=== PATIENT | female | born 1965 | race Caucasian/White ===

== ENCOUNTER 2021-09-06 14:47 | Emergency (ER) | payer BC, SELFPAY ==
[2021-09-06 15:01] VITALS: BP 124/84; PULSE 65; RESP 15; TEMP 36.7; O2SAT 98; BMI 25.8
--- NOTE | 2021-09-06 15:25 | ED_ITS ---
HPI - Syncope General: Chief Complaint: Syncope Stated Complaint: SYNCOPE Time Seen by Provider: 09/06/21 14:54 Source: patient and family History of Present Illness: HPI narrative: 56 year old female presents to the emergency room department chief complaint of syncopal episode while at [facility] patient was with family and friends in which she was not feeling good earlier this morning did not eat breakfast nor lunch in which she had a witnessed syncopal episode in front of family. Patient did strike her head she was unresponsive for about a couple minutes she has had up to now intermittent episodes of left arm tightness and numbness has been ongoing she recalls no pre- existing history of any cardiac disease does report she had a clean bill of health at her last physical by her primary care doctor in the last 2 months patient does not recall having prior history of any episodes of cardiac issues reports no pulmonary issues reports no recent medication changes or any other associated symptoms. MD complaint: loss of consciousness Onset (ago): minute(s) Associated symptoms: Reports chest pain; Deny abdominal pain, fever(s), headache(s) or nausea Review of Systems General: Reports: 10 or more systems reviewed and unremarkable except in HPI and below Const: Denies: fever(s), chills, fatigue or malaise Eyes: Denies: change in vision or blurry vision Card: Reports: chest pain; Denies: palpitations Resp: Denies: dyspnea or productive cough GI: Denies: abdominal pain, nausea or vomiting : Denies: flank pain Musc: Denies: extremity pain or extremity swelling Skin/Breast: Denies: rash or pruritus Neuro: Reports: numbness in extremities, sensory changes and dizziness; Denies: headache(s) Psych: Denies: anxiety or depression Daniel/Lymph: Denies: easy bleeding All/Imm: Denies: urticaria, throat swelling or facial swelling Physical Exam Narrative: EXAM NARRATIVE: Patient appears slightly anxious however appears nontoxic appears in no obvious acute distress. Const: COMMON NORMALS: no acute distress, patient oriented x3 and healthy appearing HENMT: COMMON NORMALS: normocephalic and atraumatic HEAD & SCALP: normocephalic and atraumatic Eye: COMMON NORMALS: Equal, round and reactive pupils present and EOMs intact bilaterally PUPIL: Yes Equal, round and reactive pupils present Neck/C-Spine: COMMON NORMALS: full ROM, supple and no JVD Lymph: LYMPHATIC: no lymphadenopathy noted Chest: COMMONS NORMALS: normal inspection of the chest and normal palpation of entire chest wall Resp: COMMON NORMALS: normal respiratory effort, No retractions and clear to auscultation bilaterally EFFORT & INSPECTION: Yes able to speak in complete sentences and Yes symmetric chest movement AUSCULTATION: clear to auscultation bilaterally Cardio: COMMON NORMALS: no JVD, regular rate and regular rhythm RATE: regular rate RHYTHM: regular rhythm GI: COMMON NORMALS: Normal to inspection, nondistended, normoactive bowel sounds present, Soft to palpation and non-tender INSPECTION: Yes normal to inspection PALPATION: Yes Soft to palpation : COMMON NORMALS: Yes no CVA tenderness BLADDER/KIDNEY EXAM: Yes no CVA tenderness Back/Pelvis: COMMON NORMALS: no CVA tenderness Extremity: COMMON NORMALS: normal to inspection and full ROM Neuro: COMMON NORMALS: patient oriented x3, CN's II-XII intact bilaterally, moves all extremities and no focal motor deficits Psych: COMMON NORMALS: mental status grossly normal, Normal thought process present, cooperative and normal affect THOUGHT PROCESS: Normal thought process present Skin: COMMON NORMALS: no rashes or lesions noted GENERAL SKIN EXAM: no rashes or lesions noted Course Vital Signs: Vital signs: Vital Signs Temperature 98.1 F 09/06/21 15:01 Pulse Rate 79 09/06/21 16:31 Respiratory Rate 18 09/06/21 16:31 Blood Pressure 149/74 09/06/21 16:31 Pulse Oximetry 97 09/06/21 16:31 MDM - Syncope MDM Narrative: Medical decision making narrative: Due to the patient's symptoms and condition lab work imaging will be obtained underlying cardiac and neuro work-up will be obtained for syncope we will continue to follow patient was a little nauseous prior to arrival which have been providing her some Zofran as well as IV fluids. Patient does recall she does feel somewhat dehydrated as she had not eaten or drink anything this morning or afternoon. We will continue to follow patient has had reported new episodes of left arm tightness and pain and numbness advised patient at this discomfort returns would like to provide her nitroglycerin tablet to further rule out underlying cardiac issue or concern. We will continue to follow Patient second troponin came back unremarkable patient was reporting improvement she was noted about her being positive of her COVID-19 status patient was started on some antiemetics for her breakthrough symptoms advised further follow-up primary care in 2 to 3 days and advised to return the interim if any of her symptoms persist or worse. Lab Data: Labs: Lab Results 09/06/21 09/06/21 09/06/21 14:30 14:30 14:30 WBC 6.6 10^3/uL 10^3/ uL (4.0-10.0) RBC 4.22 10^6/uL 10^6 /uL (4.1-5.3) Hgb 12.5 g/dL g/dL (11.5-15.3) Hct 37.2 % % (37.0-47.0) MCV 88.2 fl fl (81-99) MCH 29.6 pg pg (28.0-34.0) MCHC 33.6 g/dL g/dL (30.0-36.0) RDW 12.6 % % (12.1-15.1) Plt Count 257 10^3/cmm 10^3 /cmm (130-400) MPV 11.2 fL H fL (7.4-10.4) Neut % (Auto) 59.8 % % Lymph % (Auto) 30.7 % % [place] % (Auto) 8.2 % % Eos % (Auto) 0.2 % % Baso % (Auto) 0.8 % % Neut # (Auto) 3.96 10^3/uL 10^3 /uL (1.8-7.7) Lymph # (Auto) 2.0 10^3/uL 10^3/ uL (0.8-4.8) [place] # (Auto) 0.5 10^3/uL 10^3/ uL (0.2-0.9) Eos # (Auto) 0.0 10^3/uL 10^3/ uL (0.0-0.8) Baso # (Auto) 0.1 10^3/uL 10^3/ uL (0.0-0.1) Nucleated RBC % (a uto) 0 % % Nucleated RBCs # 0.0 /100WBC /100W BC Sodium 137 mmol/L mmol/L (136-145) Potassium 3.5 mmol/L mmol/L (3.5-5.1) Chloride 100 mmol/L mmol/L (98-107) Carbon Dioxide 21 mmol/L L mmol/ L (22-29) Anion Gap 19.5 H (5-19) BUN 6 mg/dL mg/dL (6-20) Creatinine 0.7 mg/dL mg/dL (0.5-0.9) GFR Calculation 85.9 mL/min L mL/ min (90-130) Glucose 87 mg/dL mg/dL (65-115) Calculated Osmolal ity 281 mOsm/kg L mOs m/kg (285-295) Calcium 9.8 mg/dL mg/dL (8.5-10.5) Total Bilirubin 0.5 mg/dL mg/dL (0.15-1.2) AST 16 U/L U/L (0-32) ALT 9 U/L U/L (0-33) Alkaline Phosphata se 73 IU/L IU/L (35-105) Troponin T Baselin e 6 ng/L ng/L (0-10) Troponin T 120 Min [place] Delta Troponin T NT-Pro-B Natriuret Pep 388 pg/mL H pg/mL (0-125) Total Protein 7.0 g/dL g/dL (6.6-8.7) Albumin 4.7 g/dL g/dL (3.5-5.2) Globulin 2.3 g/dL g/dL (1.3-4.6) Lipase 25 U/L U/L (13-60) Urine Color Urine Appearance Urine pH Ur Specific Gravit y Urine Protein Urine Glucose (UA) Urine Ketones Urine Blood Urine Nitrate Urine Bilirubin Urine Urobilinogen Ur Leukocyte Lin ase SARS-CoV-2 Ag (Rap id) 09/06/21 09/06/21 09/06/21 15:52 16:00 16:46 WBC RBC Hgb Hct MCV MCH MCHC RDW Plt Count MPV Neut % (Auto) Lymph % (Auto) [place] % (Auto) Eos % (Auto) Baso % (Auto) Neut # (Auto) Lymph # (Auto) [place] # (Auto) Eos # (Auto) Baso # (Auto) Nucleated RBC % (a uto) Nucleated RBCs # Sodium Potassium Chloride Carbon Dioxide Anion Gap BUN Creatinine GFR Calculation Glucose Calculated Osmolal ity Calcium Total Bilirubin AST ALT Alkaline Phosphata se Troponin T Baselin e Troponin T 120 Min [place] 6.00 ng/L ng/L (0-10) Delta Troponin T 0 ABS# ABS# (0-10) NT-Pro-B Natriuret Pep Total Protein Albumin Globulin Lipase Urine Color Straw (Yellow) Urine Appearance Clear (CLEAR) Urine pH 6 (5-7) Ur Specific Gravit y 1.010 (1.005-1.030) Urine Protein Neg (Negative) Urine Glucose (UA) Norm (Normal) Urine Ketones 1+ H (Negative) Urine Blood Neg (Negative) Urine Nitrate Negative (Negative) Urine Bilirubin Neg (Negative) Urine Urobilinogen Norm mg/dL mg/dL (Negative) Ur Leukocyte Lin ase Negative (Negative) SARS-CoV-2 Ag (Rap id) Positive H (Negative) Discharge Plan Discharge Patient Disposition: Home Clinical Impression: COVID-19 virus infection, Syncope and collapse Condition: Stable Prescriptions: New Zofran 4 mg tablet 4 mg PO Q8H PRN (Reason: nausea and vomiting) 4 Days Qty: 14 RF: 0 Discharge Orders: Discharge ED (Routine); Ordered 09/06/21 Ordered By: Dariel Gonsales Referrals: Darcy Ayala DO [Primary Care Provider] - Discharge Diet: Advance as tolerated Discharge Activity: Increase activity as tolerated Patient Instructions: Syncope (ED), Near Syncope (ED), COVID-19 (Coronavirus Disease 2019) (ED), Social Distancing Guidelines for COVID-19 (ED) Activity Restrictions/Additional Instructions: Please follow-up with your primary care doctor in 2 to 3 days, increase your water consumption. please return the interim if any of her symptoms persist or worse. Coding Level of Care Code ED Assistant Branch Manager for Chg Fwd Exam Comprehensive
--- NOTE | 2021-09-06 15:26 | CTR_ITS ---
PROCEDURE INFORMATION: Exam: CT Head Without Contrast Exam date and time: 09/06/2021 3:26 PM Age: 56 years old Clinical indication: Syncope and collapse; Patient HX: Syncope w ? injury; Additional info: Syncope and collapse with head injury TECHNIQUE: Imaging protocol: Computed tomography of the head without contrast. Total images: 209 Radiation optimization: All CT scans at this facility use at least one of these dose optimization techniques: automated exposure control; mA and/or kV adjustment per patient size (includes targeted exams where dose is matched to clinical indication); or iterative reconstruction. COMPARISON: CT neck w con* [id number] 05/22/2016 9:31 AM RADIATION DOSE METRICS: Total DLP (mGy-cm): 907.19 FINDINGS: Brain: No evidence of active or acute intracranial pathologic process, hemorrhage, or trauma. No visible evidence of diffuse cerebral edema or generalized demyelination. No hyperdense MCA or insular ribbon sign. No mass effect. No midline shift. Cerebral ventricles: No ventriculomegaly. Paranasal sinuses: No visible evidence of active paranasal sinus disease. Mastoid air cells: Visualized mastoid air cells are well aerated. Bones/joints: Unremarkable. No acute fracture. Soft tissues: Unremarkable. CT/CT head wo con* [id number] IMPRESSION: No evidence of active or acute intracranial pathologic process, hemorrhage, or trauma.
--- NOTE | 2021-09-06 15:26 | XRR_ITS ---
PROCEDURE INFORMATION: Exam: XR Chest Exam date and time: 09/06/2021 3:26 PM Age: 56 years old Clinical indication: Patient HX: Syncope with cp; Additional info: Syncope and collapse with atypical chest pain TECHNIQUE: Imaging protocol: XR of the chest. Views: 1 view. Total images: 1 COMPARISON: CT neck w con* [id number] 05/22/2016 9:31 AM FINDINGS: Lungs: No visible active interstitial or alveolar airspace disease. Pleural spaces: Unremarkable. No pleural effusion. No pneumothorax. Heart/Mediastinum: Cardiac structures and configuration within normal limits. Bones/joints: Unremarkable. XR/XR chest 1V portable [id number] IMPRESSION: Nonacute.
[2021-09-06 15:37] LABS: Basophils # 0.1 10^3/uL (0.0-0.1); Basophils % 0.8 %; Eosinophils % 0.2 %; Hematocrit 37.2 % (37.0-47.0); Hemoglobin 12.5 g/dL (11.5-15.3); Lymphocytes % 30.7 %; Mean Corpuscular HGB Conc 33.6 g/dL (30.0-36.0); Mean Corpuscular Hemoglobin 29.6 pg (28.0-34.0); Mean Corpuscular Volume 88.2 fl (81-99); Mean Platelet Volume 11.2 fL (7.4-10.4); Monocytes # 0.5 10^3/uL (0.2-0.9); Monocytes % 8.2 %; Neutrophils # 3.96 10^3/uL (1.8-7.7); Neutrophils % 59.8 %; Nucleated Red Blood Cells % 0 %; Platelet Count 257 10^3/cmm (130-400); Red Blood Count 4.22 10^6/uL (4.1-5.3); Red Cell Distribution Width 12.6 % (12.1-15.1); White Blood Count 6.6 10^3/uL (4.0-10.0)
[2021-09-06] MEDS: ondansetron 2 mg/ML SDV 2 mL 4 MG IVP (15:37)
[2021-09-06 15:38] VITALS: BP 147/73; PULSE 78; RESP 16; O2SAT 99
[2021-09-06] MEDS: sodium chloride 0.9% 1,000 ML 999 ML IV (15:38)
[2021-09-06 15:49] LABS: Troponin(5th) Baseline 6 ng/L (0-10)
[2021-09-06 15:59] LABS: Alanine Aminotransferase 9 U/L (0-33); Albumin Level 4.7 g/dL (3.5-5.2); Alkaline Phosphatase 73 IU/L (35-105); Anion Gap 19.5 (5-19); Aspartate Amino Transferase 16 U/L (0-32); Blood Urea Nitrogen 6 mg/dL (6-20); Calcium 9.8 mg/dL (8.5-10.5); Carbon Dioxide 21 mmol/L (22-29); Chloride 100 mmol/L (98-107); Globulin 2.3 g/dL (1.3-4.6); Glomerular Filtration Rate 85.9 mL/min (90-130); Glucose 87 mg/dL (65-115); Lipase 25 U/L (13-60); NT Pro B Type Natriuretic Pept 388 pg/mL (0-125); Osmolality Calculated 281 mOsm/kg (285-295); Potassium 3.5 mmol/L (3.5-5.1); Sodium 137 mmol/L (136-145); Total Bilirubin 0.5 mg/dL (0.15-1.2)
[2021-09-06 16:10] LABS: Add Urine Microscopic? NO; Charge for UA Resulting for Rev
[2021-09-06 16:12] LABS: Bilirubin Urine Neg (Negative); Blood Urine Neg (Negative); Glucose Urine UA Norm (Normal); Ketones Urine 1+ (Negative); Leukocyte Esterase Urine Negative (Negative); Nitrate Urine Negative (Negative); Protein Urine Neg (Negative); Urine Appearance Clear (CLEAR); Urine Color Straw (Yellow); Urobilinogen Urine Norm (Negative); pH Urine 6 (5-7)
[2021-09-06 16:29] LABS: SARS Covid-2 Antigen Positive (Negative)
[2021-09-06 16:31] VITALS: BP 149/74; PULSE 79; RESP 18; O2SAT 97
--- NOTE | 2021-09-06 16:31 | PC.NURSE ---
BG 87
[2021-09-06 17:28] LABS: Troponin 5 2HR Delta 0 ABS# (0-10)
--- NOTE | 2021-09-06 17:28 | ECG_ITS ---
[facility] Test Date: 2021-09-06 Pat Name: Petra Fermin Department: Room: Gender: Female Cigarette Packer: : 1965 Requested By: Dariel Gonsales Order Number: [id number] Maria E MD: Megan Copeland M.D. Measurements Intervals [place] Rate: 66 P: 49 AR: 150 QRS: 63 QRSD: 93 T: -44 QT: 419 QTc: 440 Interpretive Statements SINUS RHYTHM ST DEVIATION AND MODERATE T-WAVE ABNORMALITY, CONSIDER ANTEROLATERAL ISCHEMIA [-0.1+ mV T-WAVE IN V3-V6] ST DEVIATION AND MODERATE T-WAVE ABNORMALITY, CONSIDER INFERIOR ISCHEMIA [-0.1+ mV T-WAVE IN II/aVF] No previous ECG available for comparison Electronically Signed On 09-07-2021 20:09:52 C++ PROFESSOR by Megan Copeland M.D. [id number]
[2021-09-06 19:00] VITALS: PULSE 72; RESP 16; O2SAT 98
[2021-09-07 04:48] LABS: Glucose Point of Care 87 mg/dL (70-110)
== END 2021-09-06 19:38 | disposition home or self-care (01) ==
PROVIDERS: Emergency Provider Emergency Medicine; PCP Family Medicine
DX: U07.1 COVID-19 (principal); R55 Syncope and collapse
CPT/HCPCS: 36416; 70450; 71045; 80053; 81003; 82962; 83690; 83880; 84484; 85025; 87426; 93005; 96361; 96374; 99284; J2405; J7030

== ENCOUNTER 2023-04-21 15:39 | Emergency (ER) | payer BC, SELFPAY ==
[2023-04-21 15:53] VITALS: BP 160/94; PULSE 70; RESP 18; TEMP 36.7; O2SAT 95
--- NOTE | 2023-04-21 16:08 | XRR_ITS ---
PROCEDURE INFORMATION: Exam: XR Chest Exam date and time: 04/21/2023 4:13 PM Age: 58 years old Clinical indication: Pain; Angina pectoris; Additional info: Chest pain TECHNIQUE: Imaging protocol: Radiologic exam of the chest. Views: 1 view. COMPARISON: CR XR chest 1V portable [id number] 09/06/2021 3:37 PM FINDINGS: Lungs: Unremarkable. No consolidation. Pleural spaces: Unremarkable. No pleural effusion. No pneumothorax. Heart/Mediastinum: Mild cardiomegaly. Bones/joints: Unremarkable. XR/XR chest 1V portable [id number] IMPRESSION: Mild cardiomegaly, negative for infiltrate
--- NOTE | 2023-04-21 16:08 | ECG_ITS ---
[facility] Test Date: 2023-04-21 Pat Name: Petra Fermin Department: Room: Gender: Female Ccnp: : 1965 Requested By: Will Womack Order Number: [id number] Maria E MD: Megan Copeland M.D. Measurements Intervals [place] Rate: 65 P: -14 NM: 134 QRS: 24 QRSD: 91 T: -17 QT: 408 QTc: 426 Interpretive Statements SINUS RHYTHM NONSPECIFIC ST & T-WAVE ABNORMALITY Compared to ECG 09/06/2021 17:18:23 Possible ischemia no longer present T-wave abnormality still present Electronically Signed On 04-21-2023 22:20:39 CDT by Megan Copeland M.D. [id number]
--- NOTE | 2023-04-21 16:15 | ED_ITS ---
Documented by User: Will Mireles DO 04/22/23 08:05 HPI - Chest Pain General: Chief Complaint: Chest Pain Stated Complaint: chest pain Time Seen by Provider: 04/21/23 15:55 Source: patient Mode of arrival: ambulatory History of Present Illness: 58-year-old female presents emergency room complaining an episode of chest pain that began today after she been bending over doing some gardening picking up limbs around the yard she began having some chest discomfort radiating up into her neck she went and sat with took some baby aspirin which seemed to help. Most of her symptoms have resolved she has had episodes in the past while at rest at night she will get the similar kind of sensation which resolved spontaneously and she is able to go to sleep. She has no known history of coronary disease she is not diabetic does not smoke she is not been seeing a Dr. elsie unsure if she has high cholesterol has not ever had a blood pressure monitor no previous cardiac evaluation in the past no significant shortness of breath leg swelling recently. MD complaint: chest pain Onset (ago): minute(s) Timing of current episode: episodic Prior episodes: Yes Onset: during rest and during exertion Pain location: substernal Pain radiation: neck (Anterior) Severity: mild Quality: tightness and aching Relieving factors: nothing Exacerbating factors: nothing Associated symptoms: Deny abdominal pain, diaphoresis, dyspnea, fever(s), leg edema, nausea, palpitations, sense of impending doom, syncope or vomiting Treatment prior to arrival: none Review of Systems Const: Denies: fever(s), chills or diaphoresis ENMT: Denies: throat pain, ear or mastoid pain, nasal discharge or nasal congestion Card: Reports: chest pain; Denies: palpitations or syncope Resp: Denies: dyspnea GI: Denies: abdominal pain, nausea or vomiting : Denies: flank pain, difficulty voiding, dysuria, urinary frequency or urinary urgency Skin/Breast: Denies: rash or pruritus Physical Exam Const: COMMON NORMALS: no acute distress GENERAL APPEARANCE: cooperative and comfortable ORIENTATION/CONSCIOUSNESS: Yes awake, Yes oriented to person, Yes oriented to place and Yes oriented to time HENMT: COMMON NORMALS: normocephalic, atraumatic and hearing grossly normal bilaterally HEAD & SCALP: normocephalic and atraumatic Resp: COMMON NORMALS: normal respiratory effort, No retractions, No use of accessory muscles and clear to auscultation bilaterally AUSCULTATION: clear to auscultation bilaterally Cardio: COMMON NORMALS: regular rate, regular rhythm and No murmurs present (Cardio) RATE: regular rate RHYTHM: regular rhythm GI: COMMON NORMALS: Soft to palpation and No hepatosplenomegaly present AUSCULTATION: Yes normoactive bowel sounds PALPATION: Yes Soft to palpation, No Tenderness to palpation present (GI), No Guarding due to palpation present (GI) and Yes No hepatosplenomegaly present Extremity: COMMON NORMALS: normal to inspection, capillary refill normal, no clubbing, cyanosis or edema, no calf tenderness and no pedal edema Neuro: SENSORIUM/ORIENTATION: Yes oriented to person, Yes oriented to place and Yes oriented to time Skin: COMMON NORMALS: no rashes or lesions noted GENERAL SKIN EXAM: no rashes or lesions noted Course Vital Signs: Vital signs: Vital Signs Temperature 98.0 F 04/21/23 15:53 Pulse Rate 58 L 04/21/23 19:00 Respiratory Rate 18 04/21/23 15:53 Blood Pressure 119/99 04/21/23 19:00 Pulse Oximetry 98 04/21/23 19:00 Oxygen Delivery Me thod Room Air 04/21/23 19:00 MDM - Chest Pain Medical Decision Making Care signed out to Dr. Bundy at change of shift. See final notes for diagnosis and disposition. Patient presented to the ER with complaints of chest pain that radiated up into her neck. Patient did take 3 baby aspirin and seem to help. Patient was worked up in the standard cardiac in nature which included serial EKGs serial enzymes and an x-ray. All of which were essentially negative. Patient will be discharged home on a aspirin, PPI and case management will be consulted for cardiac stress test. It was explained in detail the patient needs to follow-up with her PCP for a full overall wellness exam. Lab Data 04/21/23 16:10 04/21/23 16:10 Radiology Impressions Chest X-Ray 04/21/23 16:08 IMPRESSION: Mild cardiomegaly, negative for infiltrate Laboratory Results WBC 7.86 10^3/uL (3.29-11.43) 04/21/23 16:10 RBC 4.00 10^6/uL (3.85-5.65) 04/21/23 16:10 Hgb 11.70 g/dL (11.27-16.99) 04/21/23 16:10 Hct 34.9 % (36-47) L 04/21/23 16:10 MCV 87.3 fl (85-98) 04/21/23 16:10 MCH 29.3 pg (27-33) 04/21/23 16:10 MCHC 33.5 g/dL (30-55) 04/21/23 16:10 RDW 12.4 % (12.1-15.1) 04/21/23 16:10 Plt Count 296 10^3/cmm (157-399) 04/21/23 16:10 MPV 10.4 fL (7.4-10.4) 04/21/23 16:10 Neut % (Auto) 48.6 % 04/21/23 16:10 Lymph % (Auto) 44.5 % 04/21/23 16:10 [place] % (Auto) 5.6 % 04/21/23 16:10 Eos % (Auto) 0.6 % 04/21/23 16:10 Baso % (Auto) 0.6 % 04/21/23 16:10 Neut # (Auto) 3.81 10^3/uL (1.8-7.7) 04/21/23 16:10 Lymph # (Auto) 3.5 10^3/uL (0.8-4.8) 04/21/23 16:10 [place] # (Auto) 0.4 10^3/uL (0.2-0.9) 04/21/23 16:10 Eos # (Auto) 0.1 10^3/uL (0.0-0.8) 04/21/23 16:10 Baso # (Auto) 0.1 10^3/uL (0.0-0.1) 04/21/23 16:10 Nucleated RBC % (auto) 0 % 04/21/23 16:10 Nucleated RBCs # 0.0 /100WBC 04/21/23 16:10 Sodium 139 mmol/L (136-145) 04/21/23 16:10 Potassium 3.9 mmol/L (3.5-5.1) 04/21/23 16:10 Chloride 104 mmol/L (98-107) 04/21/23 16:10 Carbon Dioxide 25 mmol/L (22-29) 04/21/23 16:10 Anion Gap 13.9 (5-19) 04/21/23 16:10 BUN 12 mg/dL (8-23) 04/21/23 16:10 Creatinine 0.8 mg/dL (0.5-0.9) 04/21/23 16:10 GFR Calculation 73.2 mL/min (90-130) L 04/21/23 16:10 Glucose 89 mg/dL (65-115) 04/21/23 16:10 Calculated Osmolality 287 mOsm/kg (285-295) 04/21/23 16:10 Calcium 9.3 mg/dL (8.5-10.5) 04/21/23 16:10 Total Bilirubin 0.2 mg/dL (0.15-1.2) 04/21/23 16:10 AST 16 U/L (0-32) 04/21/23 16:10 ALT 12 U/L (0-33) 04/21/23 16:10 Alkaline Phosphatase 69 U/L (35-105) 04/21/23 16:10 Troponin T Baseline 7 ng/L (0-10) 04/21/23 16:10 Troponin T 120 Minute 6.05 ng/L (0-10) 04/21/23 17:57 Delta Troponin T -0.95 ABS# (0-10) L 04/21/23 17:57 Total Protein 6.6 g/dL (6.6-8.7) 04/21/23 16:10 Albumin 4.6 g/dL (3.5-5.2) 04/21/23 16:10 Globulin 2.0 g/dL (1.3-4.6) 04/21/23 16:10 Discharge Plan Discharge Patient Disposition: Home Clinical Impression: Atypical chest pain Condition: Stable Prescriptions: New Prilosec OTC 20 mg tablet,delayed release (DR/EC) 20 mg PO DAILY Qty: 30 0RF Discharge Orders: Discharge ED (Routine); Ordered 04/21/23 Ordered By: Cody Bundy Referrals: Darcy Ayala DO [Primary Care Provider] - Patient Instructions: Chest Pain (ED) Activity Restrictions/Additional Instructions: Please take all your prescriptions as directed. Please take an 81 mg aspirin every day. Please follow-up with your primary care doctor for a full wellness exam. He has been referred to case management for an outpatient cardiac stress test. They usually call you quickly within 1-2 business days. If you have not heard from them within that timeframe please feel free to call them. Coding Level of Care Code ED Customer Service Technician for Chg [employer] Documented by User: Cody Bundy DO 04/21/23 18:59 HPI - Chest Pain General: Chief Complaint: Chest Pain Stated Complaint: chest pain Time Seen by Provider: 04/21/23 15:55 Course Vital Signs: Vital signs: Vital Signs Temperature 98.0 F 04/21/23 15:53 Pulse Rate 58 L 04/21/23 19:00 Respiratory Rate 18 04/21/23 15:53 Blood Pressure 119/99 04/21/23 19:00 Pulse Oximetry 98 04/21/23 19:00 Oxygen Delivery Me thod Room Air 04/21/23 19:00 MDM - Chest Pain Medical Decision Making Patient presented to the ER with complaints of chest pain that radiated up into her neck. Patient did take 3 baby aspirin and seem to help. Patient was worked up in the standard cardiac in nature which included serial EKGs serial enzymes and an x-ray. All of which were essentially negative. Patient will be discharged home on a aspirin, PPI and case management will be consulted for cardiac stress test. It was explained in detail the patient needs to follow-up with her PCP for a full overall wellness exam. Differential Diagnosis Unlikely acute massive pulmonary embolism, acute respiratory failure, acute myocardial infarction, cardiac arrest or sudden cardiac Medical Records I reviewed the patient's medical records. Lab Data I reviewed the patient's lab results. 04/21/23 16:10 04/21/23 16:10 Radiology Impressions Chest X-Ray 04/21/23 16:08 IMPRESSION: Mild cardiomegaly, negative for infiltrate Laboratory Results WBC 7.86 10^3/uL (3.29-11.43) 04/21/23 16:10 RBC 4.00 10^6/uL (3.85-5.65) 04/21/23 16:10 Hgb 11.70 g/dL (11.27-16.99) 04/21/23 16:10 Hct 34.9 % (36-47) L 04/21/23 16:10 MCV 87.3 fl (85-98) 04/21/23 16:10 MCH 29.3 pg (27-33) 04/21/23 16:10 MCHC 33.5 g/dL (30-55) 04/21/23 16:10 RDW 12.4 % (12.1-15.1) 04/21/23 16:10 Plt Count 296 10^3/cmm (157-399) 04/21/23 16:10 MPV 10.4 fL (7.4-10.4) 04/21/23 16:10 Neut % (Auto) 48.6 % 04/21/23 16:10 Lymph % (Auto) 44.5 % 04/21/23 16:10 [place] % (Auto) 5.6 % 04/21/23 16:10 Eos % (Auto) 0.6 % 04/21/23 16:10 Baso % (Auto) 0.6 % 04/21/23 16:10 Neut # (Auto) 3.81 10^3/uL (1.8-7.7) 04/21/23 16:10 Lymph # (Auto) 3.5 10^3/uL (0.8-4.8) 04/21/23 16:10 [place] # (Auto) 0.4 10^3/uL (0.2-0.9) 04/21/23 16:10 Eos # (Auto) 0.1 10^3/uL (0.0-0.8) 04/21/23 16:10 Baso # (Auto) 0.1 10^3/uL (0.0-0.1) 04/21/23 16:10 Nucleated RBC % (auto) 0 % 04/21/23 16:10 Nucleated RBCs # 0.0 /100WBC 04/21/23 16:10 Sodium 139 mmol/L (136-145) 04/21/23 16:10 Potassium 3.9 mmol/L (3.5-5.1) 04/21/23 16:10 Chloride 104 mmol/L (98-107) 04/21/23 16:10 Carbon Dioxide 25 mmol/L (22-29) 04/21/23 16:10 Anion Gap 13.9 (5-19) 04/21/23 16:10 BUN 12 mg/dL (8-23) 04/21/23 16:10 Creatinine 0.8 mg/dL (0.5-0.9) 04/21/23 16:10 GFR Calculation 73.2 mL/min (90-130) L 04/21/23 16:10 Glucose 89 mg/dL (65-115) 04/21/23 16:10 Calculated Osmolality 287 mOsm/kg (285-295) 04/21/23 16:10 Calcium 9.3 mg/dL (8.5-10.5) 04/21/23 16:10 Total Bilirubin 0.2 mg/dL (0.15-1.2) 04/21/23 16:10 AST 16 U/L (0-32) 04/21/23 16:10 ALT 12 U/L (0-33) 04/21/23 16:10 Alkaline Phosphatase 69 U/L (35-105) 04/21/23 16:10 Troponin T Baseline 7 ng/L (0-10) 04/21/23 16:10 Troponin T 120 Minute 6.05 ng/L (0-10) 04/21/23 17:57 Delta Troponin T -0.95 ABS# (0-10) L 04/21/23 17:57 Total Protein 6.6 g/dL (6.6-8.7) 04/21/23 16:10 Albumin 4.6 g/dL (3.5-5.2) 04/21/23 16:10 Globulin 2.0 g/dL (1.3-4.6) 04/21/23 16:10 EKG Data EKG 1: I personally reviewed and interpreted this EKG as follows: EKG interpretation date: 04/21/23 EKG interpretation time: 17:54 Prior EKG tracings: not available for review Interpretation: EKG showed ventricular rate 59 bpm, WA interval 142, QRS duration 92, QTc of 429, sinus bradycardia, nonspecific ST-T wave abnormality, Discharge Plan Discharge Patient Disposition: Home Clinical Impression: Atypical chest pain Condition: Stable Prescriptions: New Prilosec OTC 20 mg tablet,delayed release (DR/EC) 20 mg PO DAILY Qty: 30 0RF Discharge Orders: Discharge ED (Routine); Ordered 04/21/23 Ordered By: Cody Bundy Referrals: Darcy Ayala DO [Primary Care Provider] - Patient Instructions: Chest Pain (ED) Activity Restrictions/Additional Instructions: Please take all your prescriptions as directed. Please take an 81 mg aspirin every day. Please follow-up with your primary care doctor for a full wellness exam. He has been referred to case management for an outpatient cardiac stress test. They usually call you quickly within 1-2 business days. If you have not heard from them within that timeframe please feel free to call them. Coding Level of Care Code ED Customer Service Technician for Kavita Jordan
--- NOTE | 2023-04-21 16:15 | PC.NURSE ---
ekg would not connect in triage room, pt taken to room and ekg obtained
[2023-04-21 16:22] LABS: Basophils # 0.1 10^3/uL (0.0-0.1); Basophils % 0.6 %; Eosinophils # 0.1 10^3/uL (0.0-0.8); Eosinophils % 0.6 %; Hematocrit 34.9 % (36-47); Lymphocytes # 3.5 10^3/uL (0.8-4.8); Lymphocytes % 44.5 %; Mean Corpuscular HGB Conc 33.5 g/dL (30-55); Mean Corpuscular Hemoglobin 29.3 pg (27-33); Mean Corpuscular Volume 87.3 fl (85-98); Mean Platelet Volume 10.4 fL (7.4-10.4); Monocytes # 0.4 10^3/uL (0.2-0.9); Monocytes % 5.6 %; Neutrophils # 3.81 10^3/uL (1.8-7.7); Neutrophils % 48.6 %; Nucleated Red Blood Cells % 0 %; Platelet Count 296 10^3/cmm (157-399); Red Cell Distribution Width 12.4 % (12.1-15.1); White Blood Count 7.86 10^3/uL (3.29-11.43)
[2023-04-21 16:53] LABS: Troponin(5th) Baseline 7 ng/L (0-10)
[2023-04-21 16:54] LABS: Alanine Aminotransferase 12 U/L (0-33); Albumin Level 4.6 g/dL (3.5-5.2); Alkaline Phosphatase 69 U/L (35-105); Anion Gap 13.9 (5-19); Aspartate Amino Transferase 16 U/L (0-32); Blood Urea Nitrogen 12 mg/dL (8-23); Calcium 9.3 mg/dL (8.5-10.5); Carbon Dioxide 25 mmol/L (22-29); Chloride 104 mmol/L (98-107); Glomerular Filtration Rate 73.2 mL/min (90-130); Glucose 89 mg/dL (65-115); Osmolality Calculated 287 mOsm/kg (285-295); Potassium 3.9 mmol/L (3.5-5.1); Sodium 139 mmol/L (136-145); Total Bilirubin 0.2 mg/dL (0.15-1.2); Total Protein 6.6 g/dL (6.6-8.7)
[2023-04-21] MEDS: aspirin 81 mg Chew Tablet PO (16:57)
[2023-04-21 16:59] VITALS: BP 158/99; PULSE 64; O2SAT 98
[2023-04-21 17:00] VITALS: BP 116/96; PULSE 59; O2SAT 98
--- NOTE | 2023-04-21 18:08 | ECG_ITS ---
[facility] Test Date: 2023-04-21 Pat Name: Petra Fermin Department: Room: Gender: Female Hris Manager: : 1965 Requested By: Will Womack Order Number: [id number] Maria E MD: Megan Copeland M.D. Measurements Intervals [place] Rate: 59 P: -15 ME: 142 QRS: 12 QRSD: 92 T: -17 QT: 429 QTc: 428 Interpretive Statements SINUS BRADYCARDIA NONSPECIFIC ST & T-WAVE ABNORMALITY Compared to ECG 04/21/2023 15:49:41 Sinus rhythm no longer present T-wave abnormality still present Electronically Signed On 04-22-2023 21:26:43 CDT by Megan Copeland M.D. [id number]
[2023-04-21 18:32] LABS: Troponin 5 2HR 6.05 ng/L (0-10); Troponin 5 2HR Delta -0.95 ABS# (0-10)
[2023-04-21 19:00] VITALS: BP 119/99; PULSE 58; O2SAT 98
--- NOTE | 2023-04-22 08:50 | DCPLANNER ---
Addendum entered by Lottie Armas 04/29/23 14:51: Patient has an outpatient stress test scheduled for 05.03.23 at 6:45 Original Note: manager workers compensation had message to schedule an outpatient stress test for patient. manager workers compensation faxed signed order to centralized scheduling, who will call patient with appointment information.
== END 2023-04-21 19:09 | disposition home or self-care (01) ==
PROVIDERS: Emergency Provider Family Medicine; PCP Family Medicine
DX: R07.89 Other chest pain (principal)
CPT/HCPCS: 36415; 71045; 80053; 84484; 85025; 93005; 99285

== ENCOUNTER 2023-05-03 06:29 | Outpatient (CLI) | payer BC, SELFPAY ==
--- NOTE | 2023-05-03 | ECG_ITS ---
[facility] Test Date: 2023-05-03 Pat Name: Petra Fermin Department: Room: Gender: Female Vertical Roll Operator: : 1965 Requested By: Cody Bundy Order Number: [id number] Maria E MD: Jimmy Lee M.D. Interpretive Statements NAME OF STUDY: LEXISCAN SESTAMIBI STRESS TEST INDICATION: [Chest Pain] Procedure: At the baseline, the blood pressure was 152/87 mmHg with a heart rate of 54 bpm. The electrocardiogram showed normal sinus rhythm, normal axis with normal ST and T's. The Lexiscan was infused over a period of 20 seconds. A total of 0.4 mg of Lexiscan was infused. The stress phase was continued for a total of 5 minutes. Heart rate was at the end of stress phase was 82 bpm and a blood pressure of 142/77 mmHg. The EKG at the peak infusion revealed normal sinus rhythm with non diagnostic ST depressions seen. Sestamibi was injected 20 seconds after the Lexiscan infusion. Blood pressure at the end of recovery phase was 131/80 mmHg with a heart rate of 77 bpm. Conclusion: 1. Non-diagnostic ST segment changes/depressions seen at rest. Correlation with imaging portion of stress test is recommeneded 2. No Lexiscan induced chest pain or cardiac arrhythmia. 3. Normal blood pressure and heart rate response. 4. Sestamibi/sestamibi perfusion scan pending; see separate report. Electronically Signed On 05-13-2023 14:28:35 CDT by Jimmy Lee M.D. [id number]
[2023-05-03 06:31] VITALS: BMI 24.2
--- NOTE | 2023-05-03 06:35 | NMCV_ITS ---
NM cynthia perf SPECT r/s* [id number] Petra Fermin Age: 58 Gender: F : 1965 Exam Date: 05/03/2023 06:35 Ordering Phys: Cody Bundy DO Technologist: MICHAEL Priest Exam Location: [facility] Indications: CHEST PAIN STRESS TEST Please see separate stress test report in [facility] for full findings IMAGE PROTOCOL Rest/Stress 1 Lexiscan Day Radiopharmaceutical Dose (mCi) Administration Site Administered by Rest: Tc-99m 10.4 IV MICHAEL Black Sestamibi Stress:Tc-99m 32.8 IV MICHAEL Black Sestamibi Rest: 03-May-2023 60 Discovery 630 Stress: 03-May-2023 30 Discovery 630 0.4mg Lexiscan. Images obtained in supine and prone position. SPECT RESULTS Technical Quality: Excellent Raw Data Analysis: Normal Image Corrections: No attenuation or motion correction applied Summed Stress Score: 1 Summed Rest Score: 3 Summed Difference Score: 0 PERFUSION FINDINGS SPECT images demonstrate homogeneous tracer distribution throughout the myocardium. FUNCTIONAL RESULTS (calculated via Gated SPECT) Stress Image LV EF (%): 64 Stress EDV (mL):81 TID: 1.11 Stress ESV (mL):29 FUNCTIONAL FINDINGS: There is normal left ventricular systolic function. IMPRESSIONS 1. Normal coronary perfusion imaging with no evidence of ischemia. 2. LV systolic function is normal. Jimmy Lee MD (Electronically Signed) Final Date: 03 May 2023 10:34 S
[2023-05-03] MEDS: regadenoson 0.4 Mg/5 ml Syringe IVP (08:14)
[2023-05-03 08:31] VITALS: BP 137/68; PULSE 76
== END 2023-05-03 06:30 | disposition home or self-care (01) ==
PROVIDERS: PCP Family Medicine; Visit Provider Emergency Medicine
DX: R07.9 Chest pain, unspecified (principal)
CPT/HCPCS: 36415; 78452; 93017; 96374; A9500; J2785